=== PATIENT | female | born 1975 | race Caucasian/White ===

== ENCOUNTER 2017-09-01 16:20 | Inpatient (IN) | payer OTHER ==
[~2017-09-01] VITALS: Ht 165.1 cm; Wt 111.0 kg
[~2017-09-01 16:20] MED LIST: CHROMAGEN,1 CAPSULE PO; ENDOCET 5-3251 EACH PO; MOTRIN800 MG PO; NOHOMEMEDS
[2017-09-01 17:09] LABS: BASOPHIL (%) 0.1 % (0-1); EOSINOPHIL (%) 0.2 % (0-5); HEMATOCRIT 34.5 % (36.0-46.0); HEMOGLOBIN 11.3 G/DL (11.9-15.5); IMMATURE GRANULOCYTE (%) 0.4 % (0.0-0.7); LYMPHOCYTE (%) 6.1 % (15-42); LYMPHOCYTE COUNT 0.6 K/uL (1.0-2.8); MCH 31.2 PG (29.0-34.0); MCHC 32.8 G/DL (30.0-36.0); MCV 95.3 FL (83-99); MONOCYTE (%) 8.4 % (3-12); MONOCYTE COUNT 0.8 K/uL (0-0.8); NEUTROPHIL (%) 84.8 % (45-76); PLATELET COUNT 264 K/uL (156-360); RBC DIS.WIDTH-CV 14.9 % (11.8-14.6); RBC DIS.WIDTH-SD 52.6 % (39-53); RED BLOOD COUNT 3.62 M/uL (3.80-5.20); WHITE BLOOD COUNT 9.4 K/uL (4.1-10.2)
[2017-09-01 17:16] LABS: INTER. NORMALIZED RATIO 1.2
[2017-09-01 17:17] LABS: ALBUMIN 3.6 g/dL (3.2-4.8); CHLORIDE 101 mEq/L (99-109); POTASSIUM 4.2 mEq/L (3.7-5.4); SODIUM 136 mEq/L (136-147)
[2017-09-01 17:18] LABS: PTT 28.8 SEC (25-37)
[2017-09-01 17:20] LABS: TOTAL PROTEIN 7.3 g/dL (6.4-8.3)
[2017-09-01 17:21] LABS: TOTAL BILIRUBIN 0.8 mg/dL (0.0-1.0)
[2017-09-01 17:23] LABS: ALKALINE PHOSPHATASE 141 IU/L (3-129); CREATININE 11.2 mg/dL (0.6-1.3); GFR ESTIMATE (CALCULATED) 4 mL/min/
[2017-09-01 17:24] LABS: UREA NITROGEN (BUN) 58 mg/dL (9-23)
[2017-09-01 17:24] LABS: APPEARANCE SL.HAZY ((CLEAR)); BILIRUBIN NEGATIVE; BLOOD MODERATE; COLOR AMBER ((YELLOW)); GLUCOSE (STRIP) NEGATIVE; KETONES NEGATIVE; LEUKOCYTES NEGATIVE; NITRITE NEGATIVE; PROTEIN (STRIP) 100; SPECIFIC GRAVITY 1.017 (1.000-1.030); UROBILINOGEN 0.2 MG/DL (0.2-1.0)
[2017-09-01 17:25] LABS: AST (GOT) 49 IU/L (2-34); DIRECT BILIRUBIN 0.5 mg/dL (0.0-0.3)
[2017-09-01 17:26] LABS: ALT (GPT) 44 IU/L (3-49); LIPASE 29 U/L (1.0-51.0)
[2017-09-01 17:28] LABS: GLUCOSE 27 mg/dL (70-99)
[2017-09-01 17:48] LABS: AMORPHOUS URATES CRYSTALS 2+; BACTERIA NONE SEEN /HPF; EPITHELIAL CELLS NONE SEEN /HPF; MUCUS 1+ /LPF; RED BLOOD CELLS 0-5 /HPF (0-5); WHITE BLOOD CELLS 0-5 /HPF (0-5)
[2017-09-01 18:04] LABS: CHLORIDE 103 mEq/L (99-109); POTASSIUM 4.2 mEq/L (3.7-5.4); SODIUM 137 mEq/L (136-147)
[2017-09-01 18:10] LABS: GFR ESTIMATE (CALCULATED) 4 mL/min/
[2017-09-01 18:11] LABS: GLUCOSE 39 mg/dL (70-99); UREA NITROGEN (BUN) 65 mg/dL (9-23)
[2017-09-01 18:45] LABS: CREATINE KINASE 1113 IU/L (1-294)
[2017-09-01 22:42] LABS: SERUM ETHYL ALCOHOL < 10 mg/dL
[2017-09-01 22:46] LABS: ACETAMINOPHEN (TYLENOL) < 10 mcg/mL (10-30); SALICYLATE < 5.0 MG/DL (15-30)
[2017-09-01 22:52] LABS: CHLORIDE 108 mEq/L (99-109); POTASSIUM 3.6 mEq/L (3.7-5.4); SODIUM 135 mEq/L (136-147)
[2017-09-01 22:54] LABS: GLUCOSE 77 mg/dL (70-99)
[2017-09-01 22:54] LABS: FOLIC ACID (FOLATE) 7.8 NG/ML (5.0-22.0)
[2017-09-01 22:58] LABS: CREATININE 9.6 mg/dL (0.6-1.3); GFR ESTIMATE (CALCULATED) 5 mL/min/
[2017-09-01 22:59] LABS: UREA NITROGEN (BUN) 62 mg/dL (9-23)
[2017-09-01 23:03] LABS: THYROTROPIN (TSH) 0.25 MIU/L (0.4-5.5)
[2017-09-01 23:18] LABS: TROP-I INTERPRETATION NEGATIVE; TROPONIN-I 0.03 ng/mL (0.0-0.30)
[2017-09-02] VITALS (19 sets, daily range): BP systolic 70–165; BP diastolic 47–118
[2017-09-02 00:51] LABS: CREATINE KINASE 947 IU/L (1-294)
[2017-09-02 03:50] LABS: BENZODIAZEPINES, URINE SCREEN Negative (200 ng/mL)
[2017-09-02 04:05] LABS: UR CREATININE CONCENTRATION 280.7 MG/DL
[2017-09-02 07:23] LABS: HEMATOCRIT 30.9 % (36.0-46.0); HEMOGLOBIN 10.4 G/DL (11.9-15.5); MCH 32.5 PG (29.0-34.0); MCHC 33.7 G/DL (30.0-36.0); MCV 96.6 FL (83-99); RBC DIS.WIDTH-CV 14.9 % (11.8-14.6); RBC DIS.WIDTH-SD 52.8 % (39-53); WHITE BLOOD COUNT 7.9 K/uL (4.1-10.2)
[2017-09-02 07:55] LABS: PLAT.SUFFICIENCY ADEQUATE
[2017-09-02 07:59] LABS: CHLORIDE 102 MEQ/L (99-109); CREATININE 6.8 MG/DL (0.6-1.3); GFR ESTIMATE (CALCULATED) 7 mL/min/; GLUCOSE 206 mg/dL (70-99); POTASSIUM 3.8 MEQ/L (3.7-5.4); SODIUM 130 MEQ/L (136-147); UREA NITROGEN (BUN) 53 mg/dL (9-23)
[2017-09-02 08:13] LABS: PLATELET COUNT 175 K/uL (156-360)
[2017-09-02 13:30] LABS: CHLORIDE 101 MEQ/L (99-109); GLUCOSE 193 mg/dL (70-99); POTASSIUM 3.7 MEQ/L (3.7-5.4); SODIUM 131 MEQ/L (136-147); UREA NITROGEN (BUN) 47 mg/dL (9-23)
[2017-09-02 13:33] LABS: CREATININE 5.6 MG/DL (0.6-1.3); GFR ESTIMATE (CALCULATED) 9 mL/min/
[2017-09-03] VITALS (19 sets, daily range): BP systolic 113–172; BP diastolic 76–112
[2017-09-03] MEDS ORDERED: LISINOPRIL40 MG PO (11:59)
[2017-09-03] MEDS ORDERED: MORPHINE SULFAT15 M1 PO (11:59)
[2017-09-03] MEDS ORDERED: FLONASE16 G1 BOTH NARES (12:00)
[2017-09-03] MEDS ORDERED: GLIMEPIRIDE2 MG PO (12:00)
[2017-09-03] MEDS ORDERED: ZOLPIDEM TARTRA10 MG PO (12:00)
[2017-09-03] MEDS ORDERED: MOBIC7.5 MG PO (12:00)
[2017-09-03] MEDS ORDERED: SIMVASTATIN20 MG PO (12:00)
[2017-09-03] MEDS ORDERED: ESCITALOPRAM OX10 MG PO (12:00)
[2017-09-03] MEDS ORDERED: OXYCODONE-APAP1 EACH PO (12:00)
[2017-09-03] MEDS ORDERED: LYRICA200 MG PO (12:00)
[2017-09-03] MEDS ORDERED: METFORMIN HCL1000 MG PO (12:01)
[2017-09-03] MEDS ORDERED: EVZIO2 MG/0.4 M IM (12:01)
[2017-09-03 13:44] LABS: BASOPHIL (%) 0.2 % (0-1); EOSINOPHIL (%) 0.6 % (0-5); HEMATOCRIT 31.7 % (36.0-46.0); HEMOGLOBIN 10.8 G/DL (11.9-15.5); IMMATURE GRANULOCYTE (%) 1.3 % (0.0-0.7); LYMPHOCYTE (%) 14.2 % (15-42); LYMPHOCYTE COUNT 0.7 K/uL (1.0-2.8); MCH 31.4 PG (29.0-34.0); MCHC 34.1 G/DL (30.0-36.0); MONOCYTE (%) 10.1 % (3-12); MONOCYTE COUNT 0.5 K/uL (0-0.8); NEUTROPHIL (%) 73.6 % (45-76); NEUTROPHIL COUNT 3.4 K/uL (1.8-6.4); PLATELET COUNT 201 K/uL (156-360); RBC DIS.WIDTH-CV 14.2 % (11.8-14.6); RBC DIS.WIDTH-SD 48.2 % (39-53); RED BLOOD COUNT 3.44 M/uL (3.80-5.20); WHITE BLOOD COUNT 4.7 K/uL (4.1-10.2)
[2017-09-03 13:48] LABS: MCV 92.2 FL (83-99)
[2017-09-03 13:50] LABS: ALBUMIN 3.1 G/DL (3.2-4.8); ALKALINE PHOSPHATASE 118 IU/L (3-129); ALT (GPT) 24 IU/L (3-49); AST (GOT) 26 IU/L (2-34); CHLORIDE 108 MEQ/L (99-109); GLUCOSE 202 mg/dL (70-99); POTASSIUM 3.9 MEQ/L (3.7-5.4); TOTAL BILIRUBIN 0.9 MG/DL (0.0-1.0); TOTAL PROTEIN 5.8 G/DL (6.4-8.3)
[2017-09-03 13:53] LABS: CREATININE 0.9 MG/DL (0.6-1.3); GFR ESTIMATE (CALCULATED) > 59 mL/min/; SODIUM 143 MEQ/L (136-147); UREA NITROGEN (BUN) 22 mg/dL (9-23)
[2017-09-03 15:32] LABS: HEMOGLOBIN A1c (GLYCOHEMOGLOB) 5.8 % (Below 5.7)
[2017-09-04 04:43] VITALS: BP 173/98
[2017-09-04 06:36] LABS: BASOPHIL (%) 0.3 % (0-1); EOSINOPHIL (%) 0 % (0-5); HEMATOCRIT 38.9 % (36.0-46.0); IMMATURE GRANULOCYTE (%) 1.4 % (0.0-0.7); LYMPHOCYTE (%) 9.5 % (15-42); MCH 30.9 PG (29.0-34.0); MCHC 33.4 G/DL (30.0-36.0); MCV 92.4 FL (83-99); MONOCYTE (%) 5.8 % (3-12); MONOCYTE COUNT 0.6 K/uL (0-0.8); NEUTROPHIL COUNT 8.5 K/uL (1.8-6.4); PLATELET COUNT 271 K/uL (156-360); RBC DIS.WIDTH-CV 13.8 % (11.8-14.6); RBC DIS.WIDTH-SD 47.4 % (39-53); RED BLOOD COUNT 4.21 M/uL (3.80-5.20); WHITE BLOOD COUNT 10.2 K/uL (4.1-10.2)
[2017-09-04 06:58] LABS: CHLORIDE 106 MEQ/L (99-109); CREATININE 0.7 MG/DL (0.6-1.3); GFR ESTIMATE (CALCULATED) > 59 mL/min/; GLUCOSE 216 mg/dL (70-99); POTASSIUM 3.5 MEQ/L (3.7-5.4); SODIUM 143 MEQ/L (136-147); UREA NITROGEN (BUN) 17 mg/dL (9-23)
[2017-09-04 07:27] VITALS: BP 108/78
[2017-09-04 11:35] VITALS: BP 120/50
[2017-09-04] MEDS ORDERED: SUCRALFATE1 GM/10 ML PO (15:19)
[2017-09-04] MEDS ORDERED: ZOFRAN ODT4 MG PO (15:21)
[2017-09-04 16:08] VITALS: BP 170/98
== END 2017-09-04 17:48 | disposition home or self-care (01) | DRG 682 ==
LOC: EME 16:20 → 4WEST 21:20 → EDOF 21:20 → ENRESERV 21:36 → EDOF 22:50 → ENRESERV 22:52 → 4WEST 09-02 05:19 → ENRESERV 09-03 14:39 → 5SOUTH 09-03 18:23
PROVIDERS: Internal Medicine; Internal Medicine Critical Care Medicine; Physician Assistant
PROC: 2W3SX1Z Immobilization of Right Foot using Splint (ICD-10-PCS; principal; 2017-09-03)
DX: N17.9 Acute kidney failure, unspecified (principal); E11.649 Type 2 diabetes mellitus with hypoglycemia without coma; M62.82 Rhabdomyolysis; S92.323A Displaced fracture of second metatarsal bone, unspecified foot, initial encounter for closed fracture; I10 Essential (primary) hypertension; W19.XXXA Unspecified fall, initial encounter; E86.0 Dehydration; G93.41 Metabolic encephalopathy; Y92.002 Bathroom of unspecified non-institutional (private) residence as the place of occurrence of the external cause; Z79.84 Long term (current) use of oral hypoglycemic drugs
CPT/HCPCS: 70450; 71045; 71250; 73630; 74176; 80048; 80048 91; 80053; 80076; 80306 90; 81003; 82140; 82436; 82550; 82550 91; 82570; 82607; 82746; 82803; 82948; 83036; 83605; 83690; 84133; 84300; 84443; 84484; 85025; 85027; 85610; 85730; 87040; 87086; 87502; 87641; 93005; 99281; 99285; G0480; J1644; J1815; J2060; J2405; J2543; J2997; J7030; J7042; J7050; J7070; J7120

== ENCOUNTER 2017-09-29 11:27 | Inpatient (IN) | payer OTHER ==
[~2017-09-29] VITALS: Ht 165.1 cm; Wt 110.4 kg
[~2017-09-29 11:27] MED LIST changes: +ESCITALOPRAM OX10 MG PO; +EVZIO2 MG/0.4 M IM; +FLONASE16 G1 BOTH NARES; +GLIMEPIRIDE2 MG PO; +LISINOPRIL40 MG PO; +LYRICA200 MG PO; +METFORMIN HCL1000 MG PO; +MOBIC7.5 MG PO; +MORPHINE SULFAT15 M1 PO; +OXYCODONE-APAP1 EACH PO; +SIMVASTATIN20 MG PO; +SUCRALFATE1 GM/10 ML PO; +ZOFRAN ODT4 MG PO; +ZOLPIDEM TARTRA10 MG PO
[2017-09-29 11:36] LABS: BASE EXCESS -9.5 mEq/L (-3 to +3); BICARBONATE 16.4 mEq/L (22-26); CARBOXY HGB 0.8 % (0-5); METHEMOGLOBIN 1.3 % (0-1.5); PCO2 35 mm Hg (35-45); PO2 203 mm Hg (80-100); pH 7.28 (7.35-7.45)
[2017-09-29 11:37] LABS: COMMENTS - BLOOD GASES +C; DEVICE NRBM; FI02 100 %; O2 FLOW 20 L/MIN; SITE RR; TOTAL RESP RATE 22 resp/min
[2017-09-29 12:17] LABS: BASOPHIL (%) 0.1 % (0-1); EOSINOPHIL (%) 0.3 % (0-5); HEMATOCRIT 40.8 % (36.0-46.0); HEMOGLOBIN 13.4 G/DL (11.9-15.5); IMMATURE GRANULOCYTE (%) 0.5 % (0.0-0.7); LYMPHOCYTE (%) 6.8 % (15-42); LYMPHOCYTE COUNT 0.5 K/uL (1.0-2.8); MCH 31.7 PG (29.0-34.0); MCHC 32.8 G/DL (30.0-36.0); MCV 96.5 FL (83-99); MONOCYTE (%) 5.9 % (3-12); MONOCYTE COUNT 0.5 K/uL (0-0.8); NEUTROPHIL (%) 86.4 % (45-76); NEUTROPHIL COUNT 6.7 K/uL (1.8-6.4); PLATELET COUNT 317 K/uL (156-360); RBC DIS.WIDTH-CV 14.4 % (11.8-14.6); RBC DIS.WIDTH-SD 49.7 % (39-53); RED BLOOD COUNT 4.23 M/uL (3.80-5.20); WHITE BLOOD COUNT 7.8 K/uL (4.1-10.2)
[2017-09-29 12:20] LABS: INTER. NORMALIZED RATIO 1.1
[2017-09-29 12:32] LABS: ALBUMIN 3.9 g/dL (3.2-4.8); CHLORIDE 101 mEq/L (99-109); POTASSIUM 5.9 mEq/L (3.7-5.4); SODIUM 135 mEq/L (136-147)
[2017-09-29 12:34] LABS: GLUCOSE 110 mg/dL (70-99)
[2017-09-29 12:34] LABS: APPEARANCE SL.HAZY ((CLEAR)); BILIRUBIN NEGATIVE; BLOOD SMALL; COLOR YELLOW ((YELLOW)); GLUCOSE (STRIP) NEGATIVE; KETONES NEGATIVE; LEUKOCYTES NEGATIVE; NITRITE NEGATIVE; PROTEIN (STRIP) 30; SPECIFIC GRAVITY 1.016 (1.000-1.030); UROBILINOGEN 0.2 MG/DL (0.2-1.0)
[2017-09-29 12:38] LABS: ALKALINE PHOSPHATASE 138 IU/L (3-129); CREATININE 7.6 mg/dL (0.6-1.3); GFR ESTIMATE (CALCULATED) 6 mL/min/
[2017-09-29 12:39] LABS: UREA NITROGEN (BUN) 42 mg/dL (9-23)
[2017-09-29 12:40] LABS: AST (GOT) 33 IU/L (2-34)
[2017-09-29 12:41] LABS: ALT (GPT) 24 IU/L (3-49); CREATINE KINASE 226 IU/L (1-294); LIPASE 71 U/L (1.0-51.0); TROP-I INTERPRETATION NEGATIVE; TROPONIN-I 0.03 ng/mL (0.0-0.30)
[2017-09-29 12:43] LABS: BACTERIA 1+ /HPF; EPITHELIAL CELLS RARE /HPF; HYALINE CASTS 20-30 /LPF; MUCUS TRACE /LPF; RED BLOOD CELLS 0-5 /HPF (0-5); UCUL ADDED? NO; WHITE BLOOD CELLS 0-5 /HPF (0-5)
[2017-09-29 13:31] LABS: BICARBONATE 18.4 mEq/L (22-26); CARBOXY HGB 1.5 % (0-5); METHEMOGLOBIN 1.1 % (0-1.5)
[2017-09-29 13:32] LABS: PCO2 40 mm Hg (35-45); PO2 112 mm Hg (80-100)
[2017-09-29 13:33] LABS: COMMENTS - BLOOD GASES NA C+; DEVICE VENT; FI02 75 %; MECHANICAL RATE 20 resp/min; MODE AC/VC+; PEEP 5 CM/H20; SITE RR; TIDAL VOLUME 440 ML; TOTAL RESP RATE 20 resp/min; pH 7.27 (7.35-7.45)
[2017-09-29 17:58] LABS: BASE EXCESS -6.9 mEq/L (-3 to +3); BICARBONATE 18.5 mEq/L (22-26); CARBOXY HGB 1.4 % (0-5); METHEMOGLOBIN 1.1 % (0-1.5); PCO2 36 mm Hg (35-45); PO2 101 mm Hg (80-100); pH 7.32 (7.35-7.45)
[2017-09-29 17:59] LABS: COMMENTS - BLOOD GASES +C; DEVICE PB980; FI02 50 %; INSPIRATION TIME 0.8 seconds; MECHANICAL RATE 20 resp/min; MODE ACVC+; SITE RR +A; TIDAL VOLUME 440 ML; TOTAL RESP RATE 20 resp/min
[2017-09-29 18:00] LABS: PEEP 5 CM/H20
[2017-09-29 19:10] VITALS: BP 100/62
[2017-09-29 19:30] VITALS: BP 100/62
[2017-09-29 20:00] VITALS: BP 110/63
[2017-09-29 20:59] LABS: APPEARANCE CLOUDY ((CLEAR)); BILIRUBIN NEGATIVE; BLOOD MODERATE; COLOR YELLOW ((YELLOW)); GLUCOSE (STRIP) 50; KETONES NEGATIVE; LEUKOCYTES NEGATIVE; NITRITE NEGATIVE; PROTEIN (STRIP) NEGATIVE; SPECIFIC GRAVITY 1.011 (1.000-1.030); UROBILINOGEN 0.2 MG/DL (0.2-1.0)
[2017-09-29 21:00] VITALS: BP 109/64
[2017-09-29 21:26] LABS: BACTERIA RARE /HPF; EPITHELIAL CELLS RARE /HPF; HYALINE CASTS 0-5 /LPF; MUCUS TRACE /LPF; UCUL ADDED? YES
[2017-09-29 22:00] VITALS: BP 100/61
[2017-09-29 23:00] VITALS: BP 106/65
[2017-09-29 23:14] LABS: BASE EXCESS -5.1 mEq/L (-3 to +3); BICARBONATE 19.8 mEq/L (22-26); CARBOXY HGB 1.3 % (0-5); METHEMOGLOBIN 1.5 % (0-1.5); PCO2 35 mm Hg (35-45); PO2 107 mm Hg (80-100); pH 7.36 (7.35-7.45)
[2017-09-29 23:15] LABS: COMMENTS - BLOOD GASES C+A+; DEVICE 980 VENT; FI02 50 %; INSPIRATION TIME 0.8 seconds; MECHANICAL RATE 20 resp/min; MODE AC VC+; PEEP 5 CM/H20; SITE LR; TIDAL VOLUME 440 ML; TOTAL RESP RATE 20 resp/min
[2017-09-29 23:34] LABS: CHLORIDE 107 mEq/L (99-109); SODIUM 136 mEq/L (136-147)
[2017-09-29 23:40] LABS: UREA NITROGEN (BUN) 36 mg/dL (9-23)
[2017-09-29 23:44] LABS: CREATININE 4.7 mg/dL (0.6-1.3); GFR ESTIMATE (CALCULATED) 11 mL/min/; GLUCOSE 286 mg/dL (70-99); POTASSIUM 4.4 mEq/L (3.7-5.4)
[2017-09-30] VITALS (28 sets, daily range): BP systolic 0–149; BP diastolic 0–113
[2017-09-30 01:08] LABS: BENZODIAZEPINES, URINE SCREEN Negative (200 ng/mL)
[2017-09-30 04:44] LABS: BASE EXCESS -3.8 mEq/L (-3 to +3); BICARBONATE 20.6 mEq/L (22-26); CARBOXY HGB 1.7 % (0-5); COMMENTS - BLOOD GASES C+; DEVICE 980 VENT; FI02 30 %; INSPIRATION TIME 0.8 seconds; MECHANICAL RATE 20 resp/min; METHEMOGLOBIN 1.7 % (0-1.5); MODE AC VC+; PCO2 34 mm Hg (35-45); PO2 72 mm Hg (80-100); SITE RR; TOTAL RESP RATE 20 resp/min; pH 7.39 (7.35-7.45)
[2017-09-30 04:45] LABS: PEEP 5 CM/H20; TIDAL VOLUME 440 ML
[2017-09-30 06:01] LABS: BASOPHIL (%) 0.3 % (0-1); EOSINOPHIL (%) 1.6 % (0-5); EOSINOPHIL COUNT 0.2 K/uL (0-0.3); HEMATOCRIT 28.2 % (36.0-46.0); IMMATURE GRANULOCYTE (%) 0.3 % (0.0-0.7); LYMPHOCYTE (%) 9.8 % (15-42); LYMPHOCYTE COUNT 1.1 K/uL (1.0-2.8); MONOCYTE (%) 10.4 % (3-12); MONOCYTE COUNT 1.1 K/uL (0-0.8); NEUTROPHIL (%) 77.6 % (45-76); NEUTROPHIL COUNT 8.5 K/uL (1.8-6.4); RBC DIS.WIDTH-CV 14.4 % (11.8-14.6); RBC DIS.WIDTH-SD 48.5 % (39-53)
[2017-09-30 06:05] LABS: HEMOGLOBIN 9.6 G/DL (11.9-15.5)
[2017-09-30 06:06] LABS: ALBUMIN 2.8 G/DL (3.2-4.8); ALKALINE PHOSPHATASE 79 IU/L (3-129); ALT (GPT) 12 IU/L (3-49); AST (GOT) 15 IU/L (2-34); CHLORIDE 105 MEQ/L (99-109); GFR ESTIMATE (CALCULATED) 14 mL/min/; GLUCOSE 227 mg/dL (70-99); MAGNESIUM 1.4 mg/dl (1.3-2.7); PHOSPHORUS 4.2 mg/dL (2.5-4.9); SODIUM 136 MEQ/L (136-147); TOTAL BILIRUBIN 0.8 MG/DL (0.0-1.0); TOTAL PROTEIN 5.4 G/DL (6.4-8.3); UREA NITROGEN (BUN) 34 mg/dL (9-23)
[2017-09-30 06:09] LABS: CREATININE 3.8 MG/DL (0.6-1.3)
[2017-09-30 06:44] LABS: PLAT.SUFFICIENCY ADEQUATE
[2017-09-30 06:46] LABS: PLATELET COUNT 214 K/uL (156-360)
[2017-09-30] MEDS ORDERED: MORPHINE SULFAT30 M2 PO (10:11)
[2017-09-30] MEDS ORDERED: LISINOPRIL40 MG PO (10:21)
[2017-09-30] MEDS ORDERED: MOBIC7.5 MG PO (10:21)
[2017-09-30] MEDS ORDERED: ZOLPIDEM TARTRA10 MG PO (10:22)
[2017-09-30] MEDS ORDERED: FLONASE16 G1 BOTH NARES (10:22)
[2017-09-30] MEDS ORDERED: LYRICA200 MG PO (10:22)
[2017-09-30] MEDS ORDERED: OXYCODONE-APAP1 EACH PO (10:22)
[2017-09-30] MEDS ORDERED: ESCITALOPRAM OX10 MG PO (10:22)
[2017-09-30] MEDS ORDERED: METFORMIN HCL1000 MG PO (10:23)
[2017-09-30] MEDS ORDERED: IBUPROFEN800 MG PO (10:23)
[2017-09-30] MEDS ORDERED: GLIMEPIRIDE2 MG PO (10:23)
[2017-09-30] MEDS ORDERED: ONDANSETRON ODT4 MG PO (10:23)
[2017-09-30] MEDS ORDERED: SIMVASTATIN20 MG PO (10:23)
[2017-09-30] MEDS ORDERED: CARAFATE1 GM PO (10:24)
[2017-09-30] MEDS ORDERED: EVZIO0.4 MG/0.4 SC (10:24)
[2017-10-01] VITALS (19 sets, daily range): BP systolic 125–171; BP diastolic 74–105
[2017-10-01 10:03] LABS: HEMOGLOBIN A1c (GLYCOHEMOGLOB) 5.1 % (Below 5.7)
[2017-10-01 14:02] LABS: VANCOMYCIN, TROUGH 11.2 MCG/ML (10-20)
[2017-10-01 14:05] LABS: BASOPHIL (%) 0.3 % (0-1); EOSINOPHIL (%) 0.5 % (0-5); HEMATOCRIT 30.5 % (36.0-46.0); HEMOGLOBIN 10.3 G/DL (11.9-15.5); IMMATURE GRANULOCYTE (%) 1.4 % (0.0-0.7); LYMPHOCYTE (%) 8.5 % (15-42); LYMPHOCYTE COUNT 0.7 K/uL (1.0-2.8); MCH 32.3 PG (29.0-34.0); MCHC 33.8 G/DL (30.0-36.0); MCV 95.6 FL (83-99); MONOCYTE (%) 6.9 % (3-12); MONOCYTE COUNT 0.6 K/uL (0-0.8); NEUTROPHIL (%) 82.4 % (45-76); NEUTROPHIL COUNT 7.2 K/uL (1.8-6.4); NRBC (%) 0.6 /100 WBC (0-0); PLATELET COUNT 183 K/uL (156-360); RBC DIS.WIDTH-CV 14.1 % (11.8-14.6); RBC DIS.WIDTH-SD 48.4 % (39-53); RED BLOOD COUNT 3.19 M/uL (3.80-5.20); WHITE BLOOD COUNT 8.7 K/uL (4.1-10.2)
[2017-10-01 14:40] LABS: CHLORIDE 105 MEQ/L (99-109); GLUCOSE 254 mg/dL (70-99); POTASSIUM 4.5 MEQ/L (3.7-5.4); SODIUM 138 MEQ/L (136-147); UREA NITROGEN (BUN) 18 mg/dL (9-23)
[2017-10-01 14:41] LABS: GFR ESTIMATE (CALCULATED) > 59 mL/min/; PHOSPHORUS 2.4 mg/dL (2.5-4.9)
[2017-10-02 06:36] LABS: BASOPHIL (%) 0.4 % (0-1); EOSINOPHIL (%) 0.6 % (0-5); EOSINOPHIL COUNT 0.1 K/uL (0-0.3); HEMATOCRIT 28.7 % (36.0-46.0); HEMOGLOBIN 9.6 G/DL (11.9-15.5); IMMATURE GRANULOCYTE (%) 1.6 % (0.0-0.7); LYMPHOCYTE (%) 11.8 % (15-42); LYMPHOCYTE COUNT 1.2 K/uL (1.0-2.8); MCHC 33.4 G/DL (30.0-36.0); MCV 92.6 FL (83-99); MONOCYTE (%) 7.1 % (3-12); MONOCYTE COUNT 0.7 K/uL (0-0.8); NEUTROPHIL (%) 78.5 % (45-76); NEUTROPHIL COUNT 8.1 K/uL (1.8-6.4); PLATELET COUNT 203 K/uL (156-360); RBC DIS.WIDTH-CV 13.6 % (11.8-14.6); RBC DIS.WIDTH-SD 45.6 % (39-53); WHITE BLOOD COUNT 10.3 K/uL (4.1-10.2)
[2017-10-02 08:04] LABS: CHLORIDE 105 MEQ/L (99-109); CREATININE 0.7 MG/DL (0.6-1.3); GFR ESTIMATE (CALCULATED) > 59 mL/min/; GLUCOSE 169 mg/dL (70-99); POTASSIUM 3.7 MEQ/L (3.7-5.4); SODIUM 139 MEQ/L (136-147); UREA NITROGEN (BUN) 13 mg/dL (9-23)
[2017-10-02 08:10] VITALS: BP 147/71
[2017-10-02] MEDS ORDERED: AMOX TR-K CLV1 EAC4 PO (12:44)
[2017-10-02] MEDS ORDERED: AFEDITAB CR30 MG PO (12:44)
[2017-10-02 14:58] LABS: MAGNESIUM 1.2 mg/dl (1.3-2.7); VANCOMYCIN, TROUGH 10.5 MCG/ML (10-20)
[2017-10-02 17:03] VITALS: BP 162/87
== END 2017-10-02 17:44 | DRG 853 ==
LOC: EME 11:27 → EDOF 14:01 → 4WEST 14:01 → ENRESERV 14:09 → EDOF 14:11 → ENRESERV 18:01 → 4WEST 19:07 → ENRESERV 10-01 13:27 → 5SOUTH 10-01 20:09 → ENPENDDIS 10-02 13:01 → 5SOUTH 10-02 17:44
PROVIDERS: Emergency Medicine; Family Medicine; Obstetrics & Gynecology; Specialist; Surgery
DX: A41.9 Sepsis, unspecified organism (principal); R65.21 Severe sepsis with septic shock; J96.00 Acute respiratory failure, unspecified whether with hypoxia or hypercapnia; N17.0 Acute kidney failure with tubular necrosis; J18.9 Pneumonia, unspecified organism; E87.4 Mixed disorder of acid-base balance; M62.82 Rhabdomyolysis; F19.239 Other psychoactive substance dependence with withdrawal, unspecified; F33.9 Major depressive disorder, recurrent, unspecified; Z68.41 Body mass index [BMI] 40.0-44.9, adult; S96.922A Laceration of unspecified muscle and tendon at ankle and foot level, left foot, initial encounter; S93.105A Unspecified dislocation of left toe(s), initial encounter; F11.10 Opioid abuse, uncomplicated; F14.10 Cocaine abuse, uncomplicated; I10 Essential (primary) hypertension; E78.5 Hyperlipidemia, unspecified; E86.9 Volume depletion, unspecified; E87.5 Hyperkalemia; F15.10 Other stimulant abuse, uncomplicated; S91.115A Laceration without foreign body of left lesser toe(s) without damage to nail, initial encounter; W01.0XXA Fall on same level from slipping, tripping and stumbling without subsequent striking against object, initial encounter; G89.29 Other chronic pain; E66.9 Obesity, unspecified; Z91.14 Patient's other noncompliance with medication regimen; Z79.4 Long term (current) use of insulin; Y92.9 Unspecified place or not applicable; Z78.1 Physical restraint status
CPT/HCPCS: 36600; 70450; 71045; 73630; 73660; 80047; 80048; 80048 91; 80053; 80202; 80306 90; 81003; 81025; 82550; 82803; 82948; 83036; 83605; 83690; 83735; 84100; 84484; 85025; 85610; 86850; 86900; 86901; 87040; 87070; 87086; 87205; 87641; 87801; 93005; 93925; 94002; 94003; 94640; 94640 76; 94760; 99202; 99281; 99285; C1751; J0330; J0692; J1644; J1815; J2310; J2704; J3370; J7040; J7050; J7120; S0028

== ENCOUNTER 2017-10-02 16:45 | Inpatient (IN) | payer OTHER ==
[~2017-10-02] VITALS: Ht 165.1 cm; Wt 110.4 kg
[~2017-10-02 16:45] MED LIST changes: +AFEDITAB CR30 MG PO; +AMOX TR-K CLV1 EAC4 PO; +CARAFATE1 GM PO; +EVZIO0.4 MG/0.4 SC; +IBUPROFEN800 MG PO; +MORPHINE SULFAT30 M2 PO; +ONDANSETRON ODT4 MG PO
[2017-10-02 18:10] VITALS: BP 178/108
[2017-10-02 19:25] VITALS: BP 167/106
[2017-10-03 07:36] VITALS: BP 142/64
== END 2017-10-03 10:34 | disposition home health service (06) | DRG 897 ==
LOC: 1WEST 16:45 → ENRESERV 16:46 → 1WEST 18:00
PROVIDERS: Psychiatry & Neurology Psychiatry
DX: F11.90 Opioid use, unspecified, uncomplicated (principal); Z68.41 Body mass index [BMI] 40.0-44.9, adult; S99.929A Unspecified injury of unspecified foot, initial encounter; S30.811A Abrasion of abdominal wall, initial encounter; F15.90 Other stimulant use, unspecified, uncomplicated; F41.9 Anxiety disorder, unspecified; E66.01 Morbid (severe) obesity due to excess calories
CPT/HCPCS: 82948; Q0177